=== PATIENT | female | born 1980 | race Caucasian/White ===

== ENCOUNTER 2017-03-09 16:37 | Emergency (ER) | payer OTHER ==
[~2017-03-09] VITALS: Ht 162.5 cm; Wt 172.4 kg
[~2017-03-09 16:37] MED LIST: ANAPROX DS550 MG PO; CYCLOBENZAPRINE10 MG PO; IBU-8800 MG PO; METFORMIN500 MG PO; MOTRIN800 MG PO; NAPROSYN500 MG PO; NKHM; PRILOSEC10 MG/Pack PO
[2017-03-09] MEDS ORDERED: NAPROSYN500 MG PO (18:42)
== END 2017-03-09 18:44 | disposition home or self-care (01) ==
LOC: ED 16:37
DX: S86.911A Strain of unspecified muscle(s) and tendon(s) at lower leg level, right leg, initial encounter (principal); F17.200 Nicotine dependence, unspecified, uncomplicated; Z79.899 Other long term (current) drug therapy; X58.XXXA Exposure to other specified factors, initial encounter; Y93.89 Activity, other specified; Y92.89 Other specified places as the place of occurrence of the external cause; Y99.8 Other external cause status

== ENCOUNTER 2017-07-10 10:35 | Emergency (ER) | payer OTHER ==
[~2017-07-10] VITALS: Ht 165.1 cm; Wt 176.9 kg
[2017-07-10] MEDS ORDERED: NAPROSYN500 MG PO (11:55)
[2017-07-10] MEDS ORDERED: CYCLOBENZAPRINE10 MG PO (11:55)
== END 2017-07-10 12:05 | disposition home or self-care (01) ==
LOC: ED 10:35
DX: M43.6 Torticollis (principal); F17.200 Nicotine dependence, unspecified, uncomplicated; Z79.899 Other long term (current) drug therapy

== ENCOUNTER → 2017-11-16 | Outpatient (CLI) | payer OTHER | END | disposition home or self-care (01) | LOC: RAD 10:32 | DX: F17.219 Nicotine dependence, cigarettes, with unspecified nicotine-induced disorders (principal) ==

== ENCOUNTER → 2018-04-19 | Outpatient (CLI) | payer OTHER | END | disposition home or self-care (01) | LOC: RAD 11:25 | DX: M25.552 Pain in left hip (principal) ==

== ENCOUNTER 2019-02-22 19:31 | Emergency (ER) | payer OTHER ==
[~2019-02-22] VITALS: Ht 162.5 cm; Wt 154.2 kg
[2019-02-22 20:41] LABS: BILIRUBIN NEGATIVE (NEGATIVE); BLOOD NEGATIVE (NEGATIVE); CLARITY SL CLOUDY (CLEAR); COLOR YELLOW (YELLOW); GLUCOSE NEGATIVE (NEGATIVE); KETONE NEGATIVE (NEGATIVE); LEUKO ESTERASE NEGATIVE (NEGATIVE); NITRITE NEGATIVE (NEGATIVE); UROBILINOGEN 0.2 E.U./dl (0.2-1.0)
[2019-02-22 20:59] LABS: BACTERIA 2+; EPITHELIAL CELLS TNTC
[2019-02-22 21:34] LABS: BASO # 0.1 10*3/uL (0.0-0.1); BASO % 0.7 % (0.0-1.0); EOS # 0.2 10*3/uL (0.0-0.4); HEMATOCRIT 42.4 % (37.0-47.0); HEMOGLOBIN 13.8 g/dl (12.0-16.0); LYMPH # 3.2 10*3/uL (1.3-4.4); LYMPH % 33.8 % (27.0-41.0); MEAN CELL VOLUME 91.4 fl (81.0-99.0); MEAN CORPUSCULAR HGB 29.7 pg (27.0-31.0); MEAN CORPUSCULAR HGB CONC 32.5 g/dl (33.0-37.0); MEAN PLATELET VOLUME 10.2 fl (9.6-12.3); MONO # 0.5 10*3/uL (0.1-1.0); MONO % 5.4 % (3.0-9.0); NEUT # 5.5 10*3/uL (2.3-7.9); NEUT % 57.4 % (47.0-73.0); PLATELET COUNT AUTOMATED 240 10*3/uL (130-400); RED BLOOD COUNT 4.64 10*6/uL (4.10-5.10); RED CELL DISTRI WIDTH 13.4 % (0-14.5); WHITE BLOOD COUNT 9.5 10*3/uL (4.8-10.8)
[2019-02-22 21:49] LABS: ALBUMIN 3.3 gm/dl (3.1-4.5); ALKALINE PHOSPHATASE 101 U/L (45-117); BUN 12 mg/dl (7-24); CHLORIDE 105 mmol/L (98-107); CREATININE 0.85 mg/dL (0.55-1.02); POTASSIUM 3.8 mmol/L (3.5-5.1); SGOT/AST 9 IU/L (3-35); SGPT/ALT 27 U/L (12-78); SODIUM 138 mmol/L (136-145); TOTAL PROTEIN 7.2 gm/dL (6.4-8.2)
== END 2019-02-23 00:22 | disposition home or self-care (01) ==
LOC: ED 19:31
PROVIDERS: Emergency Medicine
DX: R07.89 Other chest pain (principal); R07.81 Pleurodynia; E11.9 Type 2 diabetes mellitus without complications; F17.200 Nicotine dependence, unspecified, uncomplicated; Z91.048 Other nonmedicinal substance allergy status; Z79.899 Other long term (current) drug therapy; Z79.84 Long term (current) use of oral hypoglycemic drugs

== ENCOUNTER 2021-10-22 20:02 | Emergency (ER) | payer OTHER ==
[~2021-10-22] VITALS: Ht 165.1 cm; Wt 154.2 kg
[2021-10-22] MEDS ORDERED: NAPROXEN250 MG PO (20:52)
== END 2021-10-22 21:04 | disposition home or self-care (01) ==
LOC: ED 20:02
DX: M25.562 Pain in left knee (principal)

== ENCOUNTER 2023-07-18 22:42 | Emergency (ER) | payer OTHER ==
[~2023-07-18] VITALS: Ht 172.7 cm; Wt 158.8 kg
[~2023-07-18 22:42] MED LIST changes: +NAPROXEN250 MG PO
[2023-07-18 23:05] LABS: BASO # 0.1 10*3/uL (0.0-0.1); EOS # 0.2 10*3/uL (0.0-0.4); HEMATOCRIT 46.6 % (37.0-47.0); LYMPH # 3.4 10*3/uL (1.3-4.4); LYMPH % 46.3 % (27.0-41.0); MEAN CELL VOLUME 91.7 fl (81.0-99.0); MEAN CORPUSCULAR HGB 30.1 pg (27.0-31.0); MEAN CORPUSCULAR HGB CONC 32.8 g/dl (33.0-37.0); MEAN PLATELET VOLUME 9.9 fl (9.6-12.3); MONO # 0.4 10*3/uL (0.1-1.0); MONO % 5.9 % (3.0-9.0); NEUT # 3.2 10*3/uL (2.3-7.9); NEUT % 43.1 % (47.0-73.0); PLATELET COUNT AUTOMATED 246 10*3/uL (130-400); RED BLOOD COUNT 5.08 10*6/uL (4.10-5.10); RED CELL DISTRI WIDTH 13.2 % (0-14.5); WHITE BLOOD COUNT 7.4 10*3/uL (4.8-10.8)
[2023-07-18 23:28] LABS: ALKALINE PHOSPHATASE 94 U/L (46-116); BUN 10 mg/dl (9-23); CHLORIDE 106 mmol/L (98-107); LIPASE 54 U/L (12-53); POTASSIUM 3.9 mmol/L (3.4-5.1); SGPT/ALT 23 U/L (10-49); TOTAL PROTEIN 7.5 gm/dL (6.0-8.0)
[2023-07-18 23:42] LABS: ACT PARTIAL THROMBO TIME 25.6 SECONDS (20.0-32.1); INTERNATIONAL NORM RATIO 0.9 (2.0-3.5)
[2023-07-19 00:33] LABS: BILIRUBIN Negative (Negative); BLOOD Negative (Negative); CLARITY Cloudy (Clear); COLOR Yellow (Yellow); GLUCOSE Negative (Negative); KETONE Negative (Negative); LEUKO ESTERASE 2+ (Negative); NITRITE Negative (Negative); PH 6.5 (4.5-8.0); SPECIFIC GRAVITY <= 1.005 (1.001-1.030); UROBILINOGEN 0.2 E.U./dl (0.0-1.0)
[2023-07-19 00:51] LABS: BACTERIA TRACE; EPITHELIAL CELLS TNTC; WBC 16-20 wbc/hpf (0-5)
== END 2023-07-19 02:13 | disposition home or self-care (01) ==
LOC: ED 22:42
PROVIDERS: Internal Medicine
DX: R07.89 Other chest pain (principal); I25.10 Atherosclerotic heart disease of native coronary artery without angina pectoris; I10 Essential (primary) hypertension; Z88.8 Allergy status to other drugs, medicaments and biological substances; Z90.89 Acquired absence of other organs; Z98.51 Tubal ligation status; F17.200 Nicotine dependence, unspecified, uncomplicated; Z79.899 Other long term (current) drug therapy

== ENCOUNTER 2025-10-11 13:38 | Emergency (ER) | payer SELFPAY ==
[~2025-10-11] VITALS: Ht 165.1 cm; Wt 136.1 kg
[2025-10-11] MEDS ORDERED: IBUPROFEN 800 MG TAB PO ONE (15:05)
[2025-10-11 16:11] LABS: BASO # 0.1 10*3/uL (0.0-0.1); BASO % 1.1 % (0.0-1.0); EOS # 0.2 10*3/uL (0.0-0.4); EOS % 3.2 % (1.0-4.0); MEAN CELL VOLUME 91.5 fl (81.0-99.0); MEAN CORPUSCULAR HGB 29.6 pg (27.0-31.0); MEAN PLATELET VOLUME 9.8 fl (9.6-12.3); MONO # 0.4 10*3/uL (0.1-1.0); MONO % 6.0 % (3.0-9.0); NEUT # 3.3 10*3/uL (2.3-7.9); NEUT % 49.2 % (47.0-73.0); NUCLEATED RED BLOOD CELL 0.0 % (0.0-0.0); NUCLEATED RED BLOOD CELL 0.0 10*3/uL (0.0-0.0); PLATELET COUNT AUTOMATED 250 10*3/uL (130-400); RED CELL DISTRI WIDTH 13.1 % (0-14.5)
[2025-10-11 16:31] LABS: BUN 10 mg/dl (9-23); SGPT/ALT 25 U/L (5-49)
== END 2025-10-11 17:30 | disposition home or self-care (01) ==
LOC: ED 13:38
PROVIDERS: Nurse Practitioner
DX: M70.52 Other bursitis of knee, left knee (principal); E11.9 Type 2 diabetes mellitus without complications; Z88.8 Allergy status to other drugs, medicaments and biological substances